=== PATIENT | female | born 1970 | race Caucasian/White ===

== ENCOUNTER 2019-04-01 19:01 | Emergency (ER) | payer BC, OTHER ==
[~2019-04-01] VITALS: Ht 177.8 cm; Wt 92.9 kg
--- NOTE | 2019-04-01 19:16 | NUR ---
Pt presents as transfer from [facility] for [facility] consult for left ovarian torsion. Pt reports LLQ pain and nausea started around 1430. Pt received zofran and morphine at [facility] with improvment of symptoms. Pt also recieved IV zofran from EMS enroute. Pt is alert and oriented. Pt VSS. Pt tender to LLQ with palpation. Pt in gown and on monitors. Call light within reach. 22g PIV to right AC placed RIGGER THIRD.
[2019-04-01] MEDS ORDERED: PROP80CA3 PO (19:23)
[2019-04-01] MEDS ORDERED: DEXL60CA2 PO (19:23)
[2019-04-01] MEDS ORDERED: SUMA100T4 PO (19:23)
[2019-04-01] MEDS ORDERED: LEVO175T2 PO (19:23)
--- NOTE | 2019-04-01 19:48 | NUR ---
Pt to US.
--- NOTE | 2019-04-01 20:45 | NUR ---
Pt ambulatory to restroom with stand-by assist. Pt placed back on monitors. Call light within reach. at bedside.
--- NOTE | 2019-04-01 21:16 | NUR ---
Pt to imaging
--- NOTE | 2019-04-01 21:36 | NUR ---
Pt returned from imaging.
[2019-04-01] MEDS ORDERED: MORPHINE SULFATE 4 MG/ML, 1ML IVPush PRN (22:30)
[2019-04-01] MEDS ORDERED: ONDANSETRON 2MG/ML, 2ML IVPush ONE (23:00)
[2019-04-01] MEDS ORDERED: ONDANSETRON 2MG/ML, 2ML ONE (23:17)
[2019-04-01] MEDS ORDERED: MORPHINE SULFATE 4 MG/ML, 1ML ONE (23:18)
[2019-04-01 23:23] VITALS: BP 119/50
--- NOTE | 2019-04-01 23:49 | NUR ---
Pt dc'd to self care. pt given prescriptions at time of d/c. Pt educated on medications, follow-up and return precautions. Pt and VU. Pt ambulated out of ER
[2019-04-01] MEDS ORDERED: OMNIPAQUE 350 MG/ML, 100ML BOTTLE ONE (23:51)
== END 2019-04-01 23:52 | disposition home or self-care (01) ==
LOC: ED 23:42
DX: R10.32 Left lower quadrant pain (principal); R11.0 Nausea
CPT/HCPCS: 74177; 76830; 93005; 96374; 96375; 99284; J2270; J2405; Q9967

== ENCOUNTER 2020-02-27 18:44 | Emergency (ER) | payer BC ==
[~2020-02-27] VITALS: Ht 180.3 cm; Wt 94.0 kg
[~2020-02-27 18:44] MED LIST: DEXL60CA2 PO; LEVO175T2 PO; PROP80CA3 PO; SUMA100T4 PO
[2020-02-27 19:42] LABS: MEAN CORPUSCULAR HEMOGLOBIN 20.7 pg (27.0-34.8); MEAN CORPUSCULAR HGB CONC 31.3 g/dL (32.4-35.8); MEAN PLATELET VOLUME 8.8 fL (7.4-10.4); PLATELET COUNT 305 x10^3/uL (130-400); RED BLOOD COUNT 5.03 x10^6/uL (3.82-5.3); RED CELL DISTRIBUTION WIDTH 19.6 % (9.6-15.2)
[2020-02-27 19:46] LABS: ALANINE AMINOTRANSFERASE 21 U/L (12-78); ALBUMIN 3.9 g/dL (3.4-5.0); ANION GAP 6 mmol/L (5-15); CALCIUM 8.6 mg/dL (8.5-10.1); CHLORIDE 108 mmol/L (98-107); CREATININE 1.28 mg/dL (0.55-1.02)
[2020-02-27 19:49] LABS: ALKALINE PHOSPHATASE 95 U/L (45-117); BILIRUBIN,TOTAL 0.2 mg/dL (0.2-1.0); TOTAL PROTEIN 7.6 g/dL (6.4-8.2)
--- NOTE | 2020-02-27 20:43 | NUR ---
pt to room from lobby
--- NOTE | 2020-02-27 21:02 | NUR ---
KEYSHA JAMES TRANSFERRED FROM [facility] FOR C/O ABD PAIN. PT STATES SHE HAS HAD A LEFT OVARIAN TORSION IN THE PAST AND THIS "FEELS THE SAME". STATES 10 LLQ PAIN. ATTEMPTED TO URINATE WITH NO SUCCESS. EDUCATED PT TO CALL WHEN ABLE TO URINATE. AT BEDSIDE. MONITORS CONNECTED WARM BLANKET PROVIDED.
[2020-02-27] MEDS ORDERED: KETOROLAC 30 MG/1 ML ONE (21:12)
[2020-02-27 21:13] LABS: MD YES
[2020-02-27 21:16] LABS: BAND#(MANUAL) 0.11 x10^3/uL; BANDS%(MANUAL) 1 % (0-7); BASOS#(MANUAL) 0.11 x10^3/uL (0-0.1); BASOS% (MANUAL) 1 % (0-1); EOS#(MANUAL) 0.22 x10^3/uL (0.0-0.4); EOS% (MANUAL) 2 % (1-7); LYMPH#(MANUAL) 4.73 x10^3/uL (1-3.4); LYMPHS% (MANUAL) 43 % (22-44); MONOS#(MANUAL) 0.77 x10^3/uL (0.3-2.7); MONOS% (MANUAL) 7 % (2-9); REACTIVE LYMPHS # (MANUAL) 0.55 x10^3/uL (0-0); REACTIVE LYMPHS % (MANUAL) 5 % (0-0); SEG#(MANUAL) 4.51 x10^3/uL (1.8-6.8); SEGS% (MANUAL) 41 % (42-75)
[2020-02-27 21:17] LABS: HYPOCHROMIA 2+; MICROCYTOSIS 2+; POLYCHROMASIA 1+
[2020-02-27 21:18] LABS: <PLATELET ESTIMATE> ADEQUATE; <PLT MORPHOLOGY> NORMAL PLT MORPH; OVALOCYTES 1+; TARGET CELLS 1+
[2020-02-27] MEDS ORDERED: KETOROLAC 30 MG/1 ML IM ONE (21:30)
--- NOTE | 2020-02-27 21:46 | NUR ---
task rn: PT STILL UNABLE TO PROVIDE UA. OK REFUSING STRAIGHT CATH.
--- NOTE | 2020-02-27 22:05 | NUR ---
REPORT GIVEN TO MARIA
[2020-02-27 23:04] LABS: MICROSCOPIC AUTO
[2020-02-28] MEDS ORDERED: ACETAMINOPHEN 325 MG TABLET PO ONE
[2020-02-28] MEDS ORDERED: ACETAMINOPHEN 325 MG TABLET ONE (00:12)
[2020-02-28 00:14] VITALS: BP 107/58
--- NOTE | 2020-02-28 00:22 | NUR ---
PT VSS. AMBULATORY AT DISCHARGE. VERBALIZED UNDERSTANDING OF DISCHARGE INSTRUCTIONS.
== END 2020-02-28 00:24 | disposition home or self-care (01) ==
LOC: ED 22:13
DX: K57.30 Diverticulosis of large intestine without perforation or abscess without bleeding (principal)
CPT/HCPCS: 36415; 74176; 76830; 80053; 81001; 84703; 85025; 87086; 96372; 99285; J1885

== ENCOUNTER → 2020-03-09 | Outpatient (CLI) | payer BC ==
[~2020-03-09] MED LIST changes: +ASPI1TAB21 PO; +INHALER; +PROP60CA PO
[2020-03-09 10:14] LABS: BASOPHILS % (AUTO) 1 % (0-1); EOSINOPHILS % (AUTO) 3 % (1-7); LYMPHOCYTES % (AUTO) 39 % (22-44); MEAN CORPUSCULAR HEMOGLOBIN 19.8 pg (27.0-34.8); MEAN CORPUSCULAR HGB CONC 30.6 g/dL (32.4-35.8); MEAN PLATELET VOLUME 8.2 fL (7.4-10.4); MONOCYTES % (AUTO) 9 % (2-9); NEUTROPHILS % (AUTO) 47 % (42-75); PLATELET COUNT 298 x10^3/uL (130-400); RED BLOOD COUNT 4.99 x10^6/uL (3.82-5.3)
[2020-03-09 11:47] LABS: MD MORPH REVIEW ONLY
[2020-03-09 11:49] LABS: ANISOCYTOSIS 2+; MICROCYTOSIS 2+
[2020-03-09 11:50] LABS: HYPOCHROMIA 1+; OVALOCYTES 1+; POLYCHROMASIA 1+
[2020-03-09 11:52] LABS: <PLATELET ESTIMATE> ADEQUATE
[2020-03-09 11:53] LABS: <PLT MORPHOLOGY> NORMAL PLT MORPH
== END | disposition home or self-care (01) ==
LOC: STAR 08:48
PROVIDERS: ATTEND Obstetrics & Gynecology
DX: Z01.812 Encounter for preprocedural laboratory examination (principal); Z20.828 Contact with and (suspected) exposure to other viral communicable diseases; R10.2 Pelvic and perineal pain; N83.512 Torsion of left ovary and ovarian pedicle
CPT/HCPCS: 84703; 85025; 87635

== ENCOUNTER 2020-03-15 14:01 | Day surgery (SDC) | payer BC ==
[~2020-03-15] VITALS: Ht 177.8 cm; Wt 91.5 kg
[2020-03-15 14:25] VITALS: BP 108/62
[2020-03-15] MEDS ORDERED: CHLORHEXIDINE 15 ML UDC MM ONE (14:30)
[2020-03-15] MEDS ORDERED: LACTATED RINGERS 1,000 ML IV SCH (14:30)
[2020-03-15] MEDS ORDERED: ZOFRAN PO (14:31)
[2020-03-15] MEDS ORDERED: DICL75TA3 PO (14:31)
[2020-03-15] MEDS ORDERED: FERR324T5 PO (14:31)
[2020-03-15] MEDS ORDERED: SENNA PO (14:31)
[2020-03-15] MEDS ORDERED: MIDAZOLAM 1 MG/ML, 2ML ONE (15:48)
[2020-03-15] MEDS ORDERED: FENTANYL PF 100 MCG/2ML ONE ×3 (15:48→17:54)
[2020-03-15] MEDS ORDERED: BUPIVACAINE/PF 0.25% ONE (16:05)
[2020-03-15] MEDS ORDERED: EPINEPHRINE 1 MG/ML, 1ML ONE (16:06)
[2020-03-15] MEDS ORDERED: DEXAMETHASONE 4 MG/ML, 1ML ONE (16:11)
[2020-03-15] MEDS ORDERED: ONDANSETRON 2MG/ML, 2ML ONE ×2 (16:11→17:34)
[2020-03-15] MEDS ORDERED: PROPOFOL 10 MG/ML, 20ML ONE (16:11)
[2020-03-15] MEDS ORDERED: SUCCINYLCHOLINE 20 MG/ML, 10ML ONE (16:11)
[2020-03-15] MEDS ORDERED: ROCURONIUM 10 MG/ML,10ML ONE (16:11)
[2020-03-15] MEDS ORDERED: PROMETHAZINE 25 MG/ML, 1ML IVPush PRN (16:30)
[2020-03-15] MEDS ORDERED: MEPERIDINE/PF 25MG/0.5ML IVPush PRN (16:30)
[2020-03-15] MEDS ORDERED: OXYcodone 5 MG/5 ML ORAL.SOL UDC PO PRN (16:30)
[2020-03-15] MEDS ORDERED: HYDROcodone/APAP 7.5-325MG/15ML UDC PO PRN (16:30)
[2020-03-15] MEDS ORDERED: HYDROmorphone 1 MG/ML, 1ML INJ IVPush PRN (16:30)
[2020-03-15] MEDS: FENTANYL PF 100 MCG/2ML IV PRN ×3 (17:43→18:10)
[2020-03-15] MEDS ORDERED: OXYcodone 5 MG/5 ML ORAL.SOL UDC ONE (17:54)
[2020-03-15] MEDS ORDERED: ONDANSETRON 2MG/ML, 2ML IVPush PRN (18:00)
[2020-03-15] MEDS ORDERED: PROMETHAZINE 25 MG/ML, 1ML ONE (18:17)
== END 2020-03-15 20:45 | disposition home or self-care (01) ==
LOC: OR 14:01
PROVIDERS: ATTEND Obstetrics & Gynecology
DX: N83.512 Torsion of left ovary and ovarian pedicle (principal); N83.8 Other noninflammatory disorders of ovary, fallopian tube and broad ligament; N73.6 Female pelvic peritoneal adhesions (postinfective); R10.2 Pelvic and perineal pain; E03.9 Hypothyroidism, unspecified; D50.9 Iron deficiency anemia, unspecified; Z88.0 Allergy status to penicillin; Z88.7 Allergy status to serum and vaccine; Z91.018 Allergy to other foods; Z98.890 Other specified postprocedural states; Z79.899 Other long term (current) drug therapy; Z79.82 Long term (current) use of aspirin; Z72.89 Other problems related to lifestyle; Z83.3 Family history of diabetes mellitus
CPT/HCPCS: 58661; 81025; 88305; J0171; J0330; J1100; J2250; J2405; J2550; J2704; J3010; J7120